=== PATIENT | female | born 1955 ===

== ENCOUNTER → 2021-07-23 | Outpatient (CLI) | payer MEDICAID | END | disposition home or self-care (01) | LOC: RAD 07-13 12:19 | PROVIDERS: ATTEND Internal Medicine Gastroenterology | DX: R10.13 Epigastric pain (principal); R13.19 Other dysphagia; R14.0 Abdominal distension (gaseous); K59.00 Constipation, unspecified; Z12.11 Encounter for screening for malignant neoplasm of colon | CPT/HCPCS: 78227; A9537; J2805 ==